=== PATIENT | male | born 1995 | race Caucasian/White ===

== ENCOUNTER 2017-05-21 19:20 | Emergency (ER) | payer BC ==
[2017-05-21 19:30] VITALS: BP 107/57
--- NOTE | 2017-05-21 19:53 | UC ---
Shoulder Pain HPI - HPI Summary HPI Summary: Pt presents to ED with right shoulder pain since Wed. pt states woke with with. Pt states increased with abduction and extension of shoulder. Pt RHD. No paresthesia, weakness. No direct trauma. 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 No analgesia. No other complaints. Pt without h/o similar. Pt is not on any medications as reviewed at this visit - History of Current Complaint Chief Complaint: UCUpperExtremity Stated Complaint: RIGHT SHOULDER PAIN Time Seen by Provider: 05/21/17 19:38 Hx Obtained From: Patient Onset/Duration: Gradual Onset Timing: Constant Severity Initially: Mild Severity Currently: Mild Location Of Pain: Is Discrete @ - right posterior shoulder Character: Dull Aggravating Factor(s): Movement, Lifting, Extension, Abduction Alleviating Factor(s): Nothing Associated Signs And Symptoms: Positive: Negative - Allergies/Home Medications Allergies/Adverse Reactions: Allergies Allergy/AdvReac Type Severity Reaction Status Date / Time No Known Allergies Allergy Verified 05/21/17 19:30 PMH/Surg Hx/FS Hx/Imm Hx Previously Healthy: Yes - Surgical History Surgical History: None - Family History Known Family History: Positive: None - Social History Occupation: Employed Full-time Lives: With Family Alcohol Use: Occasionally Substance Use Type: None Smoking Status (MU): Light Every Day Tobacco Smoker Type: Cigarettes Amount Used/How Often: 5-6 CIGS/DAY Length of Time of Smoking/Using Tobacco: 5 YRS - Immunization History Vaccination Up to Date: Yes Review of Systems Constitutional: Negative Skin: Negative Eyes: Negative ENT: Negative Respiratory: Negative Cardiovascular: Negative Gastrointestinal: Negative Genitourinary: Negative Motor: Negative Neurovascular: Negative Musculoskeletal: Other: - right shoulder pain Neurological: Negative Psychological: Negative All Other Systems Reviewed And Are Negative: Yes Physical Exam Triage Information Reviewed: Yes Appearance: Well-Appearing, No Pain Distress, Well-Nourished Vital Signs: Initial Vital Signs Temp 97.9 F 05/21/17 19:24 Pulse 76 05/21/17 19:24 Resp 12 05/21/17 19:24 BP 107/57 05/21/17 19:24 Pulse Ox 98 05/21/17 19:24 Vital Signs Reviewed: Yes Eye Exam: Normal Eyes: Negative: Discharge ENT Exam: Normal ENT: Positive: Hearing grossly normal Neck: Positive: Supple. Negative: No Lymphadenopathy Respiratory: Positive: Chest non-tender, Lungs clear, Normal breath sounds, No respiratory distress, No accessory muscle use Cardiovascular Exam: Normal Cardiovascular: Positive: RRR, No Murmur, Pulses Normal, Other: - 2+ radial 2+ ulnar CBT <2 sec Abdominal Exam: Normal Abdomen Description: Positive: Nontender, No Organomegaly, Soft Bowel Sounds: Positive: Present Musculoskeletal: Positive: Other: - no spinous process pain no pain c/t/l/s no pain with direct palpation of shoulder or capsule + pain with palpation along right trapezius Pain increases with left lateral rotation of neck +Pain with abduction neck to left Pt with pain with extension shoulder > 45, pain along trap - passive > 90 Pain with abduction > 70 - passive > 90 Neurological: Positive: Alert, Other: - + thumb up, a ok, finger spread, finger cross Psychological Exam: Normal Shoulder Course/Dx - Course Course Of Treatment: Pt with pain right posterior shoulder - pain extends along right trapezius - pain reproducible. Increased PROM over AROM. suspect muscle strain. motrin/apap. sling. heat. stretch. flexeril. pcp f/u. Pt comfortable and in agreement with plan - Differential Dx/Diagnosis Provider Diagnoses: trapezius strain Discharge - Discharge Plan Condition: Stable Disposition: HOME Prescriptions: Cyclobenzaprine TAB* [Flexeril 10 MG TAB*] 10 mg PO BID PRN #10 tab PRN Reason: Spasms Referrals: Johnie St [Primary Care Provider] - Additional Instructions: - wear sling for comfort and support. you must take your arm out of the sling several time a day with slow, gentle stretching exercises - Apply heat, 20 minutes at a time, 2-3 times a day - okay to alternate ibuprofen (Advil, motrin) and tylenol every 3 hours for pain. take with food. do NOT take for more than 4-5 days - gentle massage is okay - Contact your doctor to schedule a follow-up appointment. Contact your doctor or return with questions or concern s
== END 2017-05-21 19:59 | disposition home or self-care (01) ==
LOC: UCCORT 19:20
DX: S46.811A Strain of other muscles, fascia and tendons at shoulder and upper arm level, right arm, initial encounter (principal); X50.0XXA Overexertion from strenuous movement or load, initial encounter; Y93.9 Activity, unspecified; Y92.89 Other specified places as the place of occurrence of the external cause; Y99.0 Civilian activity done for income or pay; F17.210 Nicotine dependence, cigarettes, uncomplicated
CPT/HCPCS: 99213; G0463

== ENCOUNTER 2019-08-28 10:23 | Emergency (ER) | payer BC ==
[2019-08-28 11:00] VITALS: BP 117/68
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
== END 2019-08-28 12:26 | disposition home or self-care (01) ==
LOC: UCCORT 10:23
DX: S20.212A Contusion of left front wall of thorax, initial encounter (principal); W18.30XA Fall on same level, unspecified, initial encounter; Y93.89 Activity, other specified; Y92.29 Other specified public building as the place of occurrence of the external cause; Z87.891 Personal history of nicotine dependence
CPT/HCPCS: 99211; G0463